=== PATIENT | female | born 1975 | race Caucasian/White ===

== ENCOUNTER 2020-02-19 16:42 | Inpatient (IN) | payer MEDICAID, SELFPAY ==
[~2020-02-19] VITALS: Ht 160 cm; Wt 149.7 kg
--- NOTE | 2020-02-19 16:56 | NUR ---
PATIENT WHEELCHAIR ASSISTED TO ER BED 1.
[2020-02-19 16:57] VITALS: BP 155/85
[2020-02-19] MEDS ORDERED: AZITHROMYCIN 500 MG in DEXTROSE 5% 250 ML IV ONE (17:05)
[2020-02-19] MEDS ORDERED: DEXAMETHASONE 10 MG/ML VIAL IVP ONE (17:05)
[2020-02-19] MEDS ORDERED: cefTRIAXone 1,000 MG VIAL ONE (17:15)
[2020-02-19] MEDS ORDERED: AZITHROMYCIN 500 MG INJ VIAL IV ONE (17:15)
[2020-02-19 17:56] LABS: APPEARANCE,URINE CLEAR (CLEAR); BILIRUBIN,URINE 1+ (NEGATIVE); BLOOD, URINE 3+ (NEGATIVE); COLOR,URINE YELLOW (YELLOW); LEUKOCYTE ESTERASE ,URINE TRACE (NEGATIVE); NITRITE, URINE NEGATIVE (NEGATIVE); UGLUCOSE NEGATIVE (NEGATIVE)
--- NOTE | 2020-02-19 18:00 | NUR ---
44 YO F BIB SON C/O SOB, COUGH, MYALGIA x 2 DAYS. PER PT, SON COVID + 2 DAYS AGO. IN ER, PT IS TACHYCARDIC, TACHYPNEIC WITH O2 SAT 91% ON RA. CLEAR BREATH SOUNDS. PT RESTING IN BED WITH 2 SIDERAILS UP. ERMD MADE AWARE OF PT STATUS. medhx: denies NKA
[2020-02-19 18:03] LABS: BASOPHILS # (AUTO) 0.1 K/uL (0.00-0.22); BASOPHILS % (AUTO) 2.6 % (0.0-2.0); EOSINOPHILS % (AUTO) 0.1 % (0.0-4.0); HEMATOCRIT 42.4 % (36-48); LYMPHOCYTES # (AUTO) 1.2 K/uL (2.5-16.5); LYMPHOCYTES % (AUTO) 22.8 % (20.5-51.1); MEAN CORPUSCULAR HEMOGLOBIN 27 pg (27-31); MEAN CORPUSCULAR HGB CONC 33 g/dL (33-37); MEAN CORPUSCULAR VOLUME 82.7 fL (80-94); MONOCYTES # (AUTO) 0.3 K/uL (0.8-1.0); MONOCYTES % (AUTO) 5.7 % (1.7-9.3); NEUTROPHILS # (AUTO) 3.6 K/uL (1.8-7.7); NEUTROPHILS % (AUTO) 68.8 % (42.2-75.2); PLATELET COUNT (AUTO) 293 K/uL (140-450); RED BLOOD CELL COUNT(AUTO) 5.13 MIL/uL (4.20-5.40); RED CELL DISTRIBUTION WIDTH 14.9 % (11.6-13.7); WHITE BLOOD COUNT (AUTO) 5.2 K/uL (4.8-10.8)
[2020-02-19 18:09] LABS: C-REACTIVE PROTEIN QUANT 4.3 mg/dL (0.0-0.9)
[2020-02-19 18:11] LABS: PROTHROMBIN TIME 10.3 secs (10.8-13.4)
[2020-02-19 18:37] LABS: RBC,URINE 80-100 /HPF (0-5); WBC,URINE 0-5 /HPF (0-5)
[2020-02-19 18:39] LABS: ALBUMIN 3.7 g/dL (3.4-5.0); ANION GAP 17.5 (8-16); CARBON DIOXIDE 25.8 mmol/L (21-32); CREATININE 0.8 mg/dL (0.6-1.3); POTASSIUM 3.3 mmol/L (3.5-5.1); TOTAL BILIRUBIN 0.4 mg/dL (0.0-1.0)
--- NOTE | 2020-02-19 19:10 | NUR ---
REPORT RECEIVED FROM IRENE IGNACIO
--- NOTE | 2020-02-19 19:11 | NUR ---
REPORT GIVEN TO JILL. ALL CARE TRANSFERRED AT THIS TIME.
[2020-02-19 19:21] LABS: CKMB RELATIVE INDEX 0.2 (0.0-2.5)
--- NOTE | 2020-02-19 19:30 | NUR ---
resting comfortably with eyes open. respirations regular and unlabored. o2 @ 2l n/c. denies pain or discomfort. made comfortable, lights turned down.
--- NOTE | 2020-02-19 21:25 | NUR ---
[facility] SWABS OBTAINED AND SENT TO LAB.
[2020-02-19] MEDS ORDERED: HYDROcodone/APAP 7.5/325 MG 1 TAB PO PRN (22:25)
[2020-02-19] MEDS ORDERED: ONDANSETRON 4 MG/2 ML VIAL IM/IVP PRN (22:25)
[2020-02-19] MEDS ORDERED: guaiFENesin DM 200/20 MG-10 ML 10 ML UDC PO PRN (22:25)
[2020-02-19] MEDS ORDERED: POTASSIUM CHLORIDE 10 MEQ TABER PO PRN (22:25)
[2020-02-19] MEDS: NACL 0.9% 1,000 ML IV SCH (22:25)
[2020-02-19] MEDS ORDERED: DOCUSATE SODIUM 100 MG GELCAP PO PRN (22:25)
[2020-02-19] MEDS ORDERED: ZOLPIDEM 5 MG TAB PO PRN (22:25)
[2020-02-19] MEDS ORDERED: ACETAMINOPHEN 325 MG TAB PO PRN (22:25)
[2020-02-19] MEDS ORDERED: ALBUTEROL SULFATE/IPRATROPIU 3 ML SOL IH PRN (22:30)
[2020-02-19] MEDS ORDERED: ALBUTEROL HFA MDI 90 MCG/ACTUATION 8 GM INH PRN (22:30)
[2020-02-19 23:19] LABS: BARBITURATE, URINE NEGATIVE ng/ml (NEG <=200); BENZODIAZEPINE, URINE NEGATIVE ng/mL (NEG <=200); CANNABINOID, URINE NEGATIVE ng/mL (NEG <=50); COCAINE, URINE NEGATIVE ng/mL (NEG <=300); OPIATE, URINE NEGATIVE ng/mL (NEG <=2000); PHENCYCLIDINE SCREEN,URINE NEGATIVE ng/mL (NEG <=25)
[2020-02-19 23:25] LABS: CHOL/HDL RATIO 2.8 (1-4.5); FREE T4 (FREE THYROXINE) 1.26 ng/dL (0.76-1.46); MAGNESIUM 2.2 mg/dL (1.8-2.4); PHOSPHORUS 3.5 mg/dL (2.5-4.9); THYROID STIMULATING HORMONE 1.93 uIU/mL (0.34-3.74)
--- NOTE | 2020-02-20 01:30 | NUR ---
COVERING PRIMARY RN FOR LUNCH RELIEF--- PT O2 SATURATION AT 90% ON 2L NC. O2 INCREASED TO 3L NC, PT O2 SATURATION INCREASED AND MAINTAINED AT 95%. PT GIVEN PO FLUIDS PER REQUEST AND TOLERATED WELL. ALL NEEDS MET AT THIS TIME.
--- NOTE | 2020-02-20 03:00 | NUR ---
CONTINUES TO REST COMFORTABLY
[2020-02-20] MEDS: ALBUTEROL SULFATE/IPRATROPIU 3 ML SOL IH SCH ×3 (07:00→19:00)
--- NOTE | 2020-02-20 07:07 | NUR ---
Report received from IRENE Antoine, care transfer to myself at this time.
--- NOTE | 2020-02-20 07:17 | NUR ---
Pt repositioned in bed for comfort, HOB elevated, VSS, will continue to monitor.
[2020-02-20 07:31] LABS: BASOPHILS % (AUTO) 0.2 % (0.0-2.0); HEMATOCRIT 41.5 % (36-48); HEMOGLOBIN 13.8 g/dL (12.0-16.0); LYMPHOCYTES # (AUTO) 0.8 K/uL (2.5-16.5); LYMPHOCYTES % (AUTO) 20.9 % (20.5-51.1); MEAN CORPUSCULAR HEMOGLOBIN 28 pg (27-31); MEAN CORPUSCULAR HGB CONC 33 g/dL (33-37); MEAN CORPUSCULAR VOLUME 82.8 fL (80-94); MONOCYTES # (AUTO) 0.4 K/uL (0.8-1.0); MONOCYTES % (AUTO) 10.6 % (1.7-9.3); NEUTROPHILS # (AUTO) 2.5 K/uL (1.8-7.7); NEUTROPHILS % (AUTO) 68.3 % (42.2-75.2); PLATELET COUNT (AUTO) 305 K/uL (140-450); RED BLOOD CELL COUNT(AUTO) 5.01 MIL/uL (4.20-5.40); RED CELL DISTRIBUTION WIDTH 14.7 % (11.6-13.7); WHITE BLOOD COUNT (AUTO) 3.7 K/uL (4.8-10.8)
--- NOTE | 2020-02-20 07:59 | NUR ---
Breakfast tray provided, HOB elevated to high hkalil's.
[2020-02-20 08:24] LABS: CREATININE 0.8 mg/dL (0.6-1.3)
[2020-02-20] MEDS: NACL 0.9% 1,000 ML IV SCH ×2 (08:51→19:02)
[2020-02-20] MEDS ORDERED: CLINICAL MONITORING MC PRN (08:55)
[2020-02-20] MEDS ORDERED: COMMUNICATION ORDER MC PRN (09:00)
[2020-02-20] MEDS: PANTOPRAZOLE 40 MG TABEC PO SCH (09:26)
[2020-02-20] MEDS: ASCORBIC ACID 500 MG TAB PO SCH (09:27)
[2020-02-20] MEDS: ZINC SULF 220 MG CAP PO SCH (09:27)
[2020-02-20] MEDS: AZITHROMYCIN 250 MG TAB PO SCH (09:27)
[2020-02-20] MEDS ORDERED: REMDESIVIR (EUA) 200 MG in NACL 0.9% 100 ML IV SCH (10:00)
--- NOTE | 2020-02-20 10:31 | NUR ---
Pt resting, visual equal rise and fall of chest, VSS, will continue to monitor.
--- NOTE | 2020-02-20 11:22 | NUR ---
Dr. Woodall at pt bedside for evalutation.
--- NOTE | 2020-02-20 12:32 | NUR ---
ROUNDED ON PATIENT. PT EATING LUNCH SITTING UP IN BED. VSS. CALL LIGHT LEFT WITHIN REACH. ALL NEEDS ADDRESSED. PT UPDATED ON HER BED STATUS. PT NOTIFIED SHE IS WAITING FOR AN OPEN BED ON MST AND THERE MAY BE PENDING DISCHARGES LATER TODAY. PT VERBALIZED UNDERSTANDING.
--- NOTE | 2020-02-20 14:10 | NUR ---
Pt repositioned to chair at bedside, VSS, will continue to monitor.
--- NOTE | 2020-02-20 14:32 | NUR ---
SOCIAL WORK NOTE: Patient's Orientation Unable To Assess Information Provided By NAA HERNANDEZ - NIA Comments SW WAS UNABLE TO MEET PATIENT AT BEDSIDE DUE TO MEDICAL CONDITION. SW COMPLETED ASSESSMENT WITH PATIENT'S SON. Drill Runner, Realtionship and Phone Number ANA KRAMER [phone] Healthcare Power of Channel Specialist No Does Patient Have a POLST No Identifying Problems No Social Work Triggers Is A Social Work Consult Needed No Mandate Report Filed No Explanation Of Identifying Problems PATIENT IS A 44-YEAR-OLD FEMALE ADMITTED FOR SUSPECTED COVID AND HYPOXIA. PATIENT HAS NO REPORTED PMHX. PATIENT'S SON REPORTED NO HISTORY OF SUBSTANCE ABUSE OR MENTAL HEALTH. Admitted From Home Pre-Admission Level Of Functioning Status Independent/Ambulatory Prior Resources/Services Used In Last 12 Months No Prior Resources Used Prior DME No Prior DME Used Dialysis Comments N/A Living Situation Lives With Family House Patient Had Caregiver No Home Support No Caregiver Issues Financial Issues No Known Financial Issue Referral To The Financial Counselor Needed No Factors/Needs No D/C Needs Identified Explanation And Or Other Factors Affecting/Possible DC Needs PATIENT'S SON STATED HE WOULD PROVIDE TRANSPORTATION HOME. Pt/Rep Participated In Discharge Plan Yes Patient/Family Agress With Discharge Plan Yes Discharge Plan Comments TENTATIVE DISCHARGE PLAN IS FOR PATIENT TO RETURN HOME. DC Plan Status Initiated
--- NOTE | 2020-02-20 15:48 | NUR ---
hhn rx not given due to covid 19 percautions
[2020-02-20] MEDS ORDERED: cefTRIAXone 1,000 MG VIAL ONE (17:15)
--- NOTE | 2020-02-20 19:10 | NUR ---
REPORT RECEIVED FROM IRENE COON
--- NOTE | 2020-02-20 19:17 | NUR ---
Gave report to IRENE Antoine, transfered all care at this time.
--- NOTE | 2020-02-20 19:30 | NUR ---
SITTING ON SIDE OF BED. RESPIRATIONS REGULAR AND UNLABORED. DENIES PAIN OR DISCOMFORT. PT STATES, "I HAD DIARRHEA". ATE SMALL AMOUNT OF DIET TRAY
--- NOTE | 2020-02-20 21:02 | NUR ---
Tx (HHN) NOT GIVEN DUE TO COVID PROTOCOL
[2020-02-21] MEDS: ALBUTEROL SULFATE/IPRATROPIU 3 ML SOL IH SCH (01:00)
--- NOTE | 2020-02-21 01:22 | NUR ---
CALL FROM DR. MCGEE
--- NOTE | 2020-02-21 02:36 | NUR ---
John titus in [facility] - 02/21/20 at 0237 by KATI HHN NOT GIVEN PER HELIO PROTOCOL
--- NOTE | 2020-02-21 02:38 | NUR ---
HHN NOT GIVEN PER COVID PROTOCOL
--- NOTE | 2020-02-21 03:08 | NUR ---
AWAKE AND ALERT SITTING ON SIDE OF BED. WARM BLANKETS AND WATER GIVEN. DENIES PAIN OR DISCOMFORT.
--- NOTE | 2020-02-21 06:00 | NUR ---
RESTING WITH EYES CLOSED, RESPIRATIONS REGULAR AND UNLABORED. CONTINUING TO WAIT FOR ROOM ASSIGNMENT
--- NOTE | 2020-02-21 07:06 | NUR ---
CARE ENDORSED TO IRENE JUAREZ
[2020-02-21 07:09] LABS: T4 (THYROXINE) 12.3 ug/dL (4.5-12.0)
[2020-02-21 08:13] LABS: BASOPHILS % (AUTO) 0.2 % (0.0-2.0); HEMATOCRIT 40.2 % (36-48); HEMOGLOBIN 13.2 g/dL (12.0-16.0); LYMPHOCYTES # (AUTO) 1.4 K/uL (2.5-16.5); LYMPHOCYTES % (AUTO) 18.7 % (20.5-51.1); MEAN CORPUSCULAR HEMOGLOBIN 27 pg (27-31); MEAN CORPUSCULAR HGB CONC 33 g/dL (33-37); MEAN CORPUSCULAR VOLUME 82.7 fL (80-94); MONOCYTES # (AUTO) 0.7 K/uL (0.8-1.0); NEUTROPHILS # (AUTO) 5.2 K/uL (1.8-7.7); NEUTROPHILS % (AUTO) 71.1 % (42.2-75.2); PLATELET COUNT (AUTO) 347 K/uL (140-450); RED BLOOD CELL COUNT(AUTO) 4.85 MIL/uL (4.20-5.40); RED CELL DISTRIBUTION WIDTH 14.7 % (11.6-13.7); WHITE BLOOD COUNT (AUTO) 7.4 K/uL (4.8-10.8)
--- NOTE | 2020-02-21 08:23 | NUR ---
PATIENT HAS BEEN SCREENED AND CATEGORIZED MODERATE NUTRITION RISK. PATIENT WILL BE SEEN WITHIN 3-5 DAYS OF ADMISSION. 01/23/20 01/25/[address]
--- NOTE | 2020-02-21 08:35 | NUR ---
John titus in [facility] - 02/21/20 at 0948 by VLADISLAV Report given to IRENE Granda via phone.
--- NOTE | 2020-02-21 08:35 | NUR ---
Report given to IRENE Quinteros via phone.
--- NOTE | 2020-02-21 08:40 | NUR ---
Note tacho in EDM - 02/21/20 at 0949 by VLADISLAV Patient will be admitted to care of Dr. Mckinley. Admited to Tele. Will go to room 122B. Belongings list completed. Report to IRENE Granda.
--- NOTE | 2020-02-21 08:40 | NUR ---
Patient will be admitted to care of Dr. Mckinley. Admited to Tele. Will go to room 122B. Belongings list completed. Report to IRENE Quinteros.
[2020-02-21 08:53] LABS: ALBUMIN 3.5 g/dL (3.4-5.0); ANION GAP 12.6 (8-16); CREATININE 0.7 mg/dL (0.6-1.3); POTASSIUM 3.6 mmol/L (3.5-5.1); TOTAL BILIRUBIN 0.4 mg/dL (0.0-1.0)
[2020-02-21] MEDS: NACL 0.9% 1,000 ML IV SCH ×2 (09:22→20:46)
[2020-02-21 09:25] VITALS: BP 117/57
--- NOTE | 2020-02-21 09:25 | NUR ---
REPORT RECEIVED @ 0900, RECEIVED PT AT 0925, PT IS ON NC 3L, IV NOTED TO RAC SALINE LOCK, IV NOTED TO BE INFILTRATED, PT IS AWAKE AND ALERT, CONTINENT, SAFETY AND FALL PRECAUTIONS IN PLACE, WILL CONTINUE TO MONITOR.
[2020-02-21] MEDS: PANTOPRAZOLE 40 MG TABEC PO SCH (09:52)
[2020-02-21] MEDS: ASCORBIC ACID 500 MG TAB PO SCH (09:52)
[2020-02-21] MEDS: AZITHROMYCIN 250 MG TAB PO SCH (09:58)
[2020-02-21] MEDS: ZINC SULF 220 MG CAP PO SCH (09:58)
--- NOTE | 2020-02-21 10:30 | NUR ---
IV REINSERTED IV TO RFA 22G, RUNNING NS @ 100ML/HR
[2020-02-21] MEDS: REMDESIVIR (EUA) 100 MG in NACL 0.9% 100 ML IV SCH (10:50)
[2020-02-21 12:00] VITALS: BP 95/59
--- NOTE | 2020-02-21 12:30 | NUR ---
PT IS HAVING LUNCH NOW AND NO SIGN OF DISTRESS NOTED.
--- NOTE | 2020-02-21 14:30 | NUR ---
PT IS RESTING IN BED, NO SIGNS OF DISTRESS NOTED, WILL CONTINUE MONITOR.
[2020-02-21 16:00] VITALS: BP 98/48
--- NOTE | 2020-02-21 16:30 | NUR ---
MOVED IV POLE TO PT LEFT SIDE PER PT REQUEST FOR EASIER ACCESS TO THE RESTROOM, PT STATES SHE WILL REQUEST FAMILY TO BRING HER EXTRA CLOTHES TO HOSPITAL, NO SIGNS OF DISTRESS NOTED, WILL CONTINUE TO MONITOR.
--- NOTE | 2020-02-21 18:30 | NUR ---
PT IS RESTING IN BED, WILL CONTINUE TO MONITOR.
--- NOTE | 2020-02-21 19:30 | NUR ---
ENDORSED PT TO WEAPONS MECHANIC NURSE FOR CONTINUITY OF CARE.
--- NOTE | 2020-02-21 19:32 | NUR ---
RECEIVED PT IN STABLE CONDITION FROM AM NURSE. AWAKE,ALERT AND ORIENTED X4. TELE PT. ON DROPLET ISOLATION DUE TO COVID+. ON O23L/NC WITH NO SOB NOTED. HAS IVF INFUSING WELL ON THE RT FA G#20. CLEAR AND PATENT. PLAN OF CARE DISCUSSED AND VERBALIZED UNDERSTANDING. FREQ ROUNDS NEEDED. BED ON LOW POSITION. SIDE RAILS UP X2. CALL LIGHT WITHIN REACH. WILL CONTINUE TO MONITOR.
[2020-02-21 20:00] VITALS: BP 93/35
--- NOTE | 2020-02-21 21:00 | NUR ---
CHECKED ON PT. AWAKE. NO SOB NOTED . ON CONTINUOUS O2 3L/NC.
--- NOTE | 2020-02-21 23:00 | NUR ---
MADE ROUNDS. PT ASLEEP. NO S/S OF ANY DISTRESS NOTED. WILL CONTINUE TO MONITOR.
[2020-02-22] VITALS (7 sets, daily range): BP systolic 104–114; BP diastolic 20–66
[2020-02-22] MEDS: NACL 0.9% 1,000 ML IV SCH ×3 (00:25→20:13)
--- NOTE | 2020-02-22 01:00 | NUR ---
MADE ROUNDS. PT SLEEPING. NO S/S OF ANY DISTRESS NOTED.
--- NOTE | 2020-02-22 02:50 | NUR ---
CHECKED ON PT. AWAKE. ON O2 3L/NC. NO C?O ANY SOB NOTED. WILL CONTINUE TO MONITOR.
[2020-02-22 06:22] LABS: BASOPHILS % (AUTO) 0.7 % (0.0-2.0); EOSINOPHILS % (AUTO) 0.2 % (0.0-4.0); HEMATOCRIT 38.9 % (36-48); HEMOGLOBIN 12.8 g/dL (12.0-16.0); LYMPHOCYTES # (AUTO) 1.3 K/uL (2.5-16.5); LYMPHOCYTES % (AUTO) 22.5 % (20.5-51.1); MEAN CORPUSCULAR HEMOGLOBIN 28 pg (27-31); MEAN CORPUSCULAR HGB CONC 33 g/dL (33-37); MEAN CORPUSCULAR VOLUME 83.8 fL (80-94); MONOCYTES # (AUTO) 0.7 K/uL (0.8-1.0); MONOCYTES % (AUTO) 11.8 % (1.7-9.3); NEUTROPHILS # (AUTO) 3.8 K/uL (1.8-7.7); NEUTROPHILS % (AUTO) 64.8 % (42.2-75.2); PLATELET COUNT (AUTO) 336 K/uL (140-450); RED BLOOD CELL COUNT(AUTO) 4.64 MIL/uL (4.20-5.40); RED CELL DISTRIBUTION WIDTH 14.6 % (11.6-13.7); WHITE BLOOD COUNT (AUTO) 5.9 K/uL (4.8-10.8)
--- NOTE | 2020-02-22 06:45 | NUR ---
PT JUST GOT BACK FROM THE BATHROOM. TO RESTART THE IVF . BUT IV ACCESS ON RT FA INFILTRATED. STARTED A NEW IV ON THE RT HAND G#22. CLEAR AND PATENT.
[2020-02-22 06:58] LABS: ALBUMIN 3.1 g/dL (3.4-5.0); ANION GAP 10.5 (8-16); CARBON DIOXIDE 27.2 mmol/L (21-32); CREATININE 0.7 mg/dL (0.6-1.3); POTASSIUM 3.7 mmol/L (3.5-5.1); TOTAL BILIRUBIN 0.3 mg/dL (0.0-1.0)
[2020-02-22] MEDS: ALBUTEROL SULFATE/IPRATROPIU 3 ML SOL IH SCH ×2 (07:00→13:00)
--- NOTE | 2020-02-22 07:40 | NUR ---
ENDORSED PT IN STABLE CONDITION TO AM NURSE.
--- NOTE | 2020-02-22 07:41 | NUR ---
RECEIVED PT FROM INTERNATIONAL AFFAIRS VICE PRESIDENT NURSE, PT IS ON NC 3L, NIGHT NURSE STATED THIS IS A NEW IV INSERTED CLOSE TO 0630, IV NOTED TO Yoshi Gaston 22, PT IS AWAKE IN BED, CONTINENT, SAFETY AND FALL PRECAUTIONS IN PLACE, WILL CONTINUE TO MONITOR
[2020-02-22] MEDS: PANTOPRAZOLE 40 MG TABEC PO SCH (08:19)
[2020-02-22] MEDS: ASCORBIC ACID 500 MG TAB PO SCH (08:20)
[2020-02-22] MEDS: ZINC SULF 220 MG CAP PO SCH (08:20)
--- NOTE | 2020-02-22 08:34 | NUR ---
SCHEDULED MEDICATIONS ADMINISTERED, PT TOLERATED MEDICATIONS WELL, EDUCATION PROVIDED, PT VERBALIZED UNDERSTANDING, WILL CONTINUE TO MONITOR.
[2020-02-22] MEDS: REMDESIVIR (EUA) 100 MG in NACL 0.9% 100 ML IV SCH (11:16)
--- NOTE | 2020-02-22 11:21 | NUR ---
SCHEDULED REMDESIVIR ADMINISTERED, PT IS RESTING IN BED, NO SIGNS OF DISTRESS NOTED, WILL CONTINUE TO MONITOR.
--- NOTE | 2020-02-22 13:00 | NUR ---
PROVIDED INCENTIVE SPIROMETER TO PT, EDUCATION PROVIDED, PT VERBALIZED UNDERSTANDING, NO SIGNS OF DISTRESS NOTED, WILL CONTINUE TO MONITOR.
--- NOTE | 2020-02-22 15:38 | NUR ---
PT IS RESTING IN BED, NO SIGNS OF DISTRESS NOTED, WILL CONTINUE TO MONITOR.
--- NOTE | 2020-02-22 19:05 | NUR ---
ENDORSED PT TO MANAGER CLINIC NURSE FOR CONTINUITY OF CARE.
--- NOTE | 2020-02-22 19:10 | NUR ---
RECEIVED BEDSIDE REPORT FROM DAY RN. AWAKE,ALERT AND ORIENTED X4. RESPIRATIONS ARE EQUAL AND UNLAORED ON 3L NC. ON DROPLET ISOLATION DUE TO COVID+. IV ON RHA 22G NS INFUSING AT 100ML/H. SKIN IS INTACT. PLAN OF CARE DISCUSSED AND VERBALIZED UNDERSTANDING. FREQ ROUNDS NEEDED. BED ON LOW POSITION. SIDE RAILS UP X2. CALL LIGHT WITHIN REACH. WILL CONTINUE TO MONITOR.
--- NOTE | 2020-02-22 20:15 | NUR ---
VITAL SIGNS ARE WITHIN NORMAL LIMITS. JARETH MEDICATION GIVEN PER ORDERS. MED EDUCATION GIVEN PT VERBALIZED UNDERSTANDING. ENCOURAGE PT TO USE IS PT DEMONSTRATED PROPER USAGE. ALL NEEDS MET. CALL LIGHT IS WITHIN REACH.
--- NOTE | 2020-02-22 22:45 | NUR ---
ROUNDS MADE. PT IS RESTING COMFORTABLY IN BED USING CELLPHONE. NO S/S OF DISTRESS NOTED. CALL LIGHT IS WITHIN REACH.
--- NOTE | 2020-02-23 | NUR ---
ROUNDS MADE. PT SLEEPING COMFORTABLY IN BED WITH EYES CLOSED. CHEST RISE AND FALL NOTED. NO S/S OF DISTRESS. CALL LIGHT IS WITHIN REACH.
--- NOTE | 2020-02-23 02:05 | NUR ---
PT IS SLEEPING COMFORTABLY IN BED WITH EYES CLOSED. CHEST RISE AND FALL NOTED. CALL LIGHT IS WITHIN REACH.
--- NOTE | 2020-02-23 04:00 | NUR ---
VITAL SIGNS ARE WITHIN NORMAL LIMITS. ALL SAFETY MEASURES ARE IN PLACE. CALL LIGHT IS WITHIN REACH.
[2020-02-23 05:20] VITALS: BP 106/60
[2020-02-23 06:06] LABS: BASOPHILS # (AUTO) 0.1 K/uL (0.00-0.22); BASOPHILS % (AUTO) 1.5 % (0.0-2.0); EOSINOPHILS % (AUTO) 0.1 % (0.0-4.0); HEMATOCRIT 37.6 % (36-48); HEMOGLOBIN 12.5 g/dL (12.0-16.0); LYMPHOCYTES # (AUTO) 1.7 K/uL (2.5-16.5); LYMPHOCYTES % (AUTO) 28.3 % (20.5-51.1); MEAN CORPUSCULAR HEMOGLOBIN 28 pg (27-31); MEAN CORPUSCULAR HGB CONC 33 g/dL (33-37); MEAN CORPUSCULAR VOLUME 83.2 fL (80-94); MONOCYTES # (AUTO) 0.8 K/uL (0.8-1.0); MONOCYTES % (AUTO) 14.3 % (1.7-9.3); NEUTROPHILS # (AUTO) 3.3 K/uL (1.8-7.7); NEUTROPHILS % (AUTO) 55.8 % (42.2-75.2); PLATELET COUNT (AUTO) 367 K/uL (140-450); RED BLOOD CELL COUNT(AUTO) 4.53 MIL/uL (4.20-5.40); RED CELL DISTRIBUTION WIDTH 14.7 % (11.6-13.7)
[2020-02-23 06:27] LABS: ANION GAP 9.2 (8-16); CREATININE 0.7 mg/dL (0.6-1.3); MAGNESIUM 2.1 mg/dL (1.8-2.4); PHOSPHORUS 2.8 mg/dL (2.5-4.9); POTASSIUM 3.2 mmol/L (3.5-5.1)
[2020-02-23] MEDS: NACL 0.9% 1,000 ML IV SCH (06:38)
--- NOTE | 2020-02-23 07:26 | NUR ---
GAVE BEDSIDE REPORT TO DAY RN. PT ENDORSED IN STABLE CONDITION.
[2020-02-23 08:00] VITALS: BP 120/67
[2020-02-23] MEDS: ZINC SULF 220 MG CAP PO SCH (10:16)
[2020-02-23] MEDS: PANTOPRAZOLE 40 MG TABEC PO SCH (10:17)
--- NOTE | 2020-02-23 10:17 | NUR ---
MORNING MEDICATIONS GIVEN, EXCEPT VITAMIN C, OUT OF STOCK ON BOTH SIDE OF THE OMNICELL. REACH OUT THE PHARMACY, WILL REFILL LATER. PATIENT IN SUPINE POSITION WITH 3L NC. ENCOURAGED PATIENT TO TAKE DEEP BREATH AND USE THE INCENTIVE SPIROMETER. PATIENT VERBALIZED UNDERSTANDING AND WILL CONTINUE TO MONITOR.
[2020-02-23] MEDS: REMDESIVIR (EUA) 100 MG in NACL 0.9% 100 ML IV SCH (10:19)
[2020-02-23] MEDS: ASCORBIC ACID 500 MG TAB PO SCH (11:37)
--- NOTE | 2020-02-23 11:37 | NUR ---
MEDICATION JUST BEEN REFILLED. ADMINISTERED MORNING DOSE OF VITAMIN C. EDUCATION PROVIDED. PATIENT IS ON 3L NC. NO ACUTE DISTRESS NOTED. INFORMED PATIENT TO USE THE INCENTIVE SPIROMETER. PATIENT VERBALIZED UNDERSTANDING. WILL CONTINUE TO MONITOR.
--- NOTE | 2020-02-23 11:40 | NUR ---
pt off o2 and on room air o2sat is 92%, called to pts room at 1415 to recheck o2 sat and pt's o2sat was 92% and venkatesh roberson notified
--- NOTE | 2020-02-23 11:44 | NUR ---
RT JUST PUT PATIENT ON ROOM AIR TO TRY TO SEE HOW PATIENT TOLERATED IN ROOM AIR. WILL CONTINUE TO MONITOR.
[2020-02-23] MEDS ORDERED: ASPI-1205 PO (12:47)
[2020-02-23] MEDS ORDERED: AZIT250T3 PO (12:47)
[2020-02-23] MEDS ORDERED: DEC1 PO (12:47)
[2020-02-23] MEDS ORDERED: OXYGEN NS (12:53)
--- NOTE | 2020-02-23 14:15 | NUR ---
PATIENT TOLERATED ROOM AIR WELL, 92%, NO HOME OXYGEN NEEDED. WILL PREPARE DISCHARGE.
--- NOTE | 2020-02-23 14:18 | NUR ---
RICARDO RIVERS: SPOKE TO IRENE MCKENNA TO CLARIFY IF PATIENT NEEDS HOME 02. SHE IS GOING TO CALL RT AND CONTACT ME BACK. Addendum: 02/23/20 at 1453 by Annette Gomez RICARDO RIVERS: CLARIFIED WITH ALLI DIRECTOR OF RT IF PATIENT WILL NEED TO BE DISCHARGED WITH HOME 02. HE SAID THAT PATIENT WILL NOT BE NEEDING HOME 02 PATIENT HAS BEEN ON ROOM AIR SINCE 11:00 AM
[2020-02-23] MEDS ORDERED: FLU VACCINE QS2020-21 0.5 ML SYR IMVAC PRN (14:40)
--- NOTE | 2020-02-23 15:13 | NUR ---
FLU VACCINE ADMINISTERED VIA INTRAMUSCULARLY AT RIGHT DELTOID. EDUCATION PROVIDED, PATIENT TOLERATED WELL. PATIENT TOLERATED WELL WITH ROOM AIR. DENIES SOB OR TROUBLE BREATHING. WILL GIVE DISCHARGE INSTRUCTIONS.
--- NOTE | 2020-02-23 15:58 | NUR ---
DISCHARGE INSTRUCTIONS PROVIDED. DISCHARGE PROTOCOL FOLLOWED. NO SOB ON ROOM AIR. WAITING FOR PATIENT'S BROTHER CHAPIN [phone] TO PICK HER UP.
--- NOTE | 2020-02-23 16:15 | NUR ---
DISCHARGE PROTOCOL FOLLOWED. IV REMOVED. WHEELED PATIENT TO THE FRONT LOBBY. PATIENT IN STABLE CONDITION. PATIENT BE PICKED UP BY HER BROTHER.
== END 2020-02-23 16:15 | disposition home or self-care (01) | DRG 137 ==
LOC: MED 16:42 → MTU 21:21 → UNDOADMIN 21:21 → MTU 02-21 06:04
PROVIDERS: ADMIT Family Medicine; ATTEND Family Medicine
PROC: XW033E5 Introduction of Remdesivir Anti-infective into Peripheral Vein, Percutaneous Approach, New Technology Group 5 (ICD-10-PCS; principal; 2020-02-20)
DX: U07.1 COVID-19 (principal); Z68.43 Body mass index [BMI] 50.0-59.9, adult; N39.0 Urinary tract infection, site not specified; J96.01 Acute respiratory failure with hypoxia; J12.89 Other viral pneumonia; E87.6 Hypokalemia; E86.0 Dehydration; E66.01 Morbid (severe) obesity due to excess calories; E78.5 Hyperlipidemia, unspecified; Z98.891 History of uterine scar from previous surgery; R74.01 Elevation of levels of liver transaminase levels; R65.10 Systemic inflammatory response syndrome (SIRS) of non-infectious origin without acute organ dysfunction
CPT/HCPCS: 36415; 71045; 71275; 80048; 80053; 80305; 81001; 82150; 82550; 82553; 82728; 83036; 83605; 83615; 83690; 83735; 83880; 84100; 84436; 84439; 84443; 84479; 84484; 84702; 85025; 85379; 85384; 85610; 85651; 85730; 86140; 86886; 86900; 86901; 87040; 87081; 87086; 93005; 96365; 96375; 99291; J0456; J0696; J1100; J1644; J7060; Q9967

== ENCOUNTER 2020-03-05 07:20 | Emergency (ER) | payer MEDICAID, SELFPAY ==
[~2020-03-05] VITALS: Ht 160 cm; Wt 149.7 kg
[~2020-03-05 07:20] MED LIST: ASPI-1205 PO; AZIT250T3 PO; DEC1 PO; OXYGEN NS
[2020-03-05 07:39] VITALS: BP 145/87
--- NOTE | 2020-03-05 07:43 | NUR ---
Patient in tent for covid precaution
--- NOTE | 2020-03-05 07:43 | NUR ---
44 y/o female from home c/o right hip numbness and tingling x 10 days. Pt denies trauma/injury. States pain radiates from hip to right foot. 0/10 pain at this time. Tested + for covid on 02/20 and hospitalized for 5 days. Denies respiratory symptoms. VSS medhx: denies
--- NOTE | 2020-03-05 08:02 | NUR ---
Dr Jean-Baptiste in tent examining patient
[2020-03-05 08:21] VITALS: BP 145/87
--- NOTE | 2020-03-05 08:21 | NUR ---
Patient discharged with v/s stable. Written and verbal after care instructions given and explained. Patient alert, oriented and verbalized understanding of instructions. Ambulatory with steady gait. All questions addressed prior to discharge. ID band removed. Patient advised to follow up with PMD. Rx of Ibuprofen 600mg given. Patient educated on indication of medication including possible reaction and side effects. Opportunity to ask questions provided and answered.
== END 2020-03-05 08:21 | disposition home or self-care (01) ==
LOC: MED 07:20
DX: M54.10 Radiculopathy, site unspecified (principal); Z79.899 Other long term (current) drug therapy; Z79.82 Long term (current) use of aspirin
CPT/HCPCS: 99282

== ENCOUNTER 2020-03-13 15:11 | Emergency (ER) | payer MEDICAID, SELFPAY ==
[~2020-03-13] VITALS: Ht 160 cm; Wt 136.1 kg
[2020-03-13 15:43] VITALS: BP 101/58
--- NOTE | 2020-03-13 15:53 | NUR ---
44/F BIB SELF C/O COUGH, MID CHEST PAIN, LEFT LOWER LEG PAIN8/10 , REDNESS X 1 MONTH. COVID + LAST MONTH & COVID TESTED NEGATIVE 2 DAYS AGO.
[2020-03-13 16:34] LABS: BASOPHILS # (AUTO) 0.1 K/uL (0.00-0.22); BASOPHILS % (AUTO) 0.8 % (0.0-2.0); EOSINOPHILS # (AUTO) 0.4 K/uL (0-0.4); EOSINOPHILS % (AUTO) 4.4 % (0.0-4.0); HEMATOCRIT 37.4 % (36-48); HEMOGLOBIN 12.3 g/dL (12.0-16.0); LYMPHOCYTES # (AUTO) 2.6 K/uL (2.5-16.5); LYMPHOCYTES % (AUTO) 29.3 % (20.5-51.1); MEAN CORPUSCULAR HEMOGLOBIN 28 pg (27-31); MEAN CORPUSCULAR HGB CONC 33 g/dL (33-37); MONOCYTES # (AUTO) 0.6 K/uL (0.8-1.0); MONOCYTES % (AUTO) 7.2 % (1.7-9.3); NEUTROPHILS # (AUTO) 5.2 K/uL (1.8-7.7); NEUTROPHILS % (AUTO) 58.3 % (42.2-75.2); PLATELET COUNT (AUTO) 295 K/uL (140-450); RED CELL DISTRIBUTION WIDTH 16.5 % (11.6-13.7); WHITE BLOOD COUNT (AUTO) 8.9 K/uL (4.8-10.8)
--- NOTE | 2020-03-13 16:38 | NUR ---
unable to obtain EKG 1638, and RN made aware
[2020-03-13 17:25] LABS: ALBUMIN 3.2 g/dL (3.4-5.0); ANION GAP 14.6 (8-16); CARBON DIOXIDE 25.8 mmol/L (21-32); CREATININE 0.7 mg/dL (0.6-1.3); POTASSIUM 3.4 mmol/L (3.5-5.1); TOTAL BILIRUBIN 0.3 mg/dL (0.0-1.0)
[2020-03-13 17:29] LABS: PROTHROMBIN TIME 9.3 secs (10.8-13.4)
[2020-03-13 18:22] VITALS: BP 101/58
--- NOTE | 2020-03-13 18:22 | NUR ---
Patient discharged with v/s stable. Written and verbal after care instructions given and explained. Patient alert, oriented and verbalized understanding of instructions. Ambulatory with steady gait. All questions addressed prior to discharge. ID band removed. Patient advised to follow up with PMD. Rx of MOTRIN, KEFLEX & BACTRIM given. Patient educated on indication of medication including possible reaction and side effects. Opportunity to ask questions provided and answered.
== END 2020-03-13 18:22 | disposition home or self-care (01) ==
LOC: MED 15:11
DX: L03.116 Cellulitis of left lower limb (principal); R07.9 Chest pain, unspecified; R05 Cough; Z79.82 Long term (current) use of aspirin; Z79.2 Long term (current) use of antibiotics; Z79.899 Other long term (current) drug therapy
CPT/HCPCS: 36415; 71045; 80053; 84484; 85025; 85610; 85730; 93005; 93971; 99285

== ENCOUNTER 2020-03-26 14:45 | Emergency (ER) | payer MEDICAID, SELFPAY ==
[~2020-03-26] VITALS: Ht 160 cm; Wt 145.1 kg
[2020-03-26 15:16] VITALS: BP 112/78
[2020-03-26 17:03] VITALS: BP 158/92
--- NOTE | 2020-03-26 17:04 | NUR ---
Patient discharged with v/s stable. Written and verbal after care instructions given and explained. Patient alert, oriented and verbalized understanding of instructions. Ambulatory with steady gait. All questions addressed prior to discharge. ID band removed. Patient advised to follow up with PMD. Rx of Promethazine Hydrochloride 6.25mg and Tramadol Hydrochloride 50mg given. Patient educated on indication of medication including possible reaction and side effects. Opportunity to ask questions provided and answered.
== END 2020-03-26 17:04 | disposition home or self-care (01) ==
LOC: MED 14:45
DX: R05 Cough (principal); R07.9 Chest pain, unspecified; E11.9 Type 2 diabetes mellitus without complications; Z79.899 Other long term (current) drug therapy
CPT/HCPCS: 71045; 93005; 99283

== ENCOUNTER 2020-04-25 12:25 | Emergency (ER) | payer MEDICAID, SELFPAY ==
[~2020-04-25] VITALS: Ht 160 cm; Wt 142.5 kg
[2020-04-25 12:36] VITALS: BP 145/84
[2020-04-25 13:06] VITALS: BP 90/48
[2020-04-25 13:36] LABS: BASOPHILS # (AUTO) 0.1 K/uL (0.00-0.22); BASOPHILS % (AUTO) 0.7 % (0.0-2.0); EOSINOPHILS % (AUTO) 0.1 % (0.0-4.0); HEMATOCRIT 38.4 % (36-48); HEMOGLOBIN 12.6 g/dL (12.0-16.0); LYMPHOCYTES # (AUTO) 1.6 K/uL (2.5-16.5); LYMPHOCYTES % (AUTO) 16.6 % (20.5-51.1); MEAN CORPUSCULAR HEMOGLOBIN 29 pg (27-31); MEAN CORPUSCULAR HGB CONC 33 g/dL (33-37); MEAN CORPUSCULAR VOLUME 86.9 fL (80-94); MONOCYTES # (AUTO) 0.6 K/uL (0.8-1.0); MONOCYTES % (AUTO) 6.5 % (1.7-9.3); NEUTROPHILS # (AUTO) 7.2 K/uL (1.8-7.7); NEUTROPHILS % (AUTO) 76.1 % (42.2-75.2); PLATELET COUNT (AUTO) 335 K/uL (140-450); RED BLOOD CELL COUNT(AUTO) 4.42 MIL/uL (4.20-5.40); RED CELL DISTRIBUTION WIDTH 16.2 % (11.6-13.7); WHITE BLOOD COUNT (AUTO) 9.5 K/uL (4.8-10.8)
[2020-04-25 13:51] LABS: ALBUMIN 3.6 g/dL (3.4-5.0); ANION GAP 12.9 (8-16); CARBON DIOXIDE 22.7 mmol/L (21-32); CREATININE 0.8 mg/dL (0.6-1.3); POTASSIUM 3.6 mmol/L (3.5-5.1); TOTAL BILIRUBIN 0.2 mg/dL (0.0-1.0)
== END 2020-04-25 14:19 | disposition home or self-care (01) ==
LOC: MED 12:25
DX: U07.1 COVID-19 (principal); E11.9 Type 2 diabetes mellitus without complications; Z79.899 Other long term (current) drug therapy
CPT/HCPCS: 36415; 71045; 80053; 84484; 85025; 87426; 93005; 99285; U0003

== ENCOUNTER 2020-04-28 12:35 | Emergency (ER) | payer SELFPAY ==
[~2020-04-28] VITALS: Ht 157.5 cm; Wt 143.3 kg
[2020-04-28 12:51] VITALS: BP 129/49
[2020-04-28 13:29] LABS: BASOPHILS # (AUTO) 0.1 K/uL (0.00-0.22); BASOPHILS % (AUTO) 1.3 % (0.0-2.0); EOSINOPHILS # (AUTO) 0.1 K/uL (0-0.4); EOSINOPHILS % (AUTO) 1.3 % (0.0-4.0); HEMATOCRIT 40.6 % (36-48); HEMOGLOBIN 13.5 g/dL (12.0-16.0); LYMPHOCYTES # (AUTO) 2.4 K/uL (2.5-16.5); LYMPHOCYTES % (AUTO) 24.4 % (20.5-51.1); MEAN CORPUSCULAR HEMOGLOBIN 29 pg (27-31); MEAN CORPUSCULAR HGB CONC 33 g/dL (33-37); MEAN CORPUSCULAR VOLUME 87.6 fL (80-94); MONOCYTES # (AUTO) 0.8 K/uL (0.8-1.0); MONOCYTES % (AUTO) 8.1 % (1.7-9.3); NEUTROPHILS # (AUTO) 6.5 K/uL (1.8-7.7); NEUTROPHILS % (AUTO) 64.9 % (42.2-75.2); PLATELET COUNT (AUTO) 406 K/uL (140-450); RED BLOOD CELL COUNT(AUTO) 4.64 MIL/uL (4.20-5.40)
--- NOTE | 2020-04-28 13:30 | NUR ---
Ambulated to bed 9
[2020-04-28 13:42] LABS: ALBUMIN 4.1 g/dL (3.4-5.0); ANION GAP 13.7 (8-16); CARBON DIOXIDE 25.2 mmol/L (21-32); CREATININE 0.9 mg/dL (0.6-1.3); POTASSIUM 3.9 mmol/L (3.5-5.1); TOTAL BILIRUBIN 0.3 mg/dL (0.0-1.0)
[2020-04-28 15:08] VITALS: BP 123/51
--- NOTE | 2020-04-28 15:09 | NUR ---
Patient discharged with v/s stable. Written and verbal after care instructions given and explained. Patient verbalized understanding. Ambulatory with steady gait. All questions addressed prior to discharge. Advised to follow up with PMD.
== END 2020-04-28 15:09 | disposition home or self-care (01) ==
LOC: MED 12:35
DX: R07.9 Chest pain, unspecified (principal); R06.02 Shortness of breath; R10.9 Unspecified abdominal pain; E11.9 Type 2 diabetes mellitus without complications; Z79.899 Other long term (current) drug therapy
CPT/HCPCS: 36415; 71045; 80053; 81002; 83880; 84484; 85025; 85379; 86140; 93005; 99285